=== PATIENT | female | born 1955 ===

== ENCOUNTER 2017-02-22 19:29 | Emergency (ER) | payer MEDICAID ==
[~2017-02-22] VITALS: Ht 154.9 cm; Wt 79.8 kg
[~2017-02-22 19:29] MED LIST: ASPIR-TRIN325 M2 PO; ASPIRIN81 M1 PO; CARAFATE1 GM/10 M1 PO; CHOLESTEROL MED PO; FLEXERIL10 MG PO; FLONASE ALLERG9.9 ML; GLIPIZIDE XL10 MG PO; GLIPIZIDE10 MG PO; GLUCOPHAGE1000 MG PO; LANTUS SOLOSTAR3 ML; LANTUS100 U/ML SC; LANTUS100 UNITS/ SC; LEVAQUIN500 M1 PO; LISINOPRIL10 M1 PO; LISINOPRIL5 M1 PO; LO-DOSE ASPIRIN81 M2 PO; MOTRIN800 MG PO; NAPROSYN500 M1 PO; NORCO 5-325 TA1 EACH PO; NORCO 5/325 TAB1 TAB PO; NOVOLOG100 UNIT/2; OMEPRAZOLE40 M2 PO; PERCOCET 5-3251 EACH PO; SIMVASTATIN5 MG PO; TESSALON PERLE100 M1 PO; TRAMADOL HCL50 M2 PO; TYLENOL ARTHRI650 MG
[2017-02-22] MEDS ORDERED: OMEPRAZOLE40 M2 PO (21:15)
[2017-02-22] MEDS ORDERED: NEURONTIN100 M1 PO (21:16)
[2017-02-22] MEDS ORDERED: ULTRAM50 M1 PO (21:16)
== END 2017-02-22 21:52 ==
LOC: EDMED 19:29
DX: H61.22 Impacted cerumen, left ear (principal); H92.02 Otalgia, left ear; E11.9 Type 2 diabetes mellitus without complications; Z79.4 Long term (current) use of insulin